=== PATIENT | female | born 1950 | race Caucasian/White ===

== ENCOUNTER 2016-03-10 14:07 | Outpatient (CLI) | payer OTHER ==
[2015-11-14 12:58] VITALS: BP 140/69
== END 2016-03-10 14:10 ==
LOC: NEPHRO 14:07
PROVIDERS: ATTEND Internal Medicine Nephrology
DX: E11.22 Type 2 diabetes mellitus with diabetic chronic kidney disease (principal); N18.9 Chronic kidney disease, unspecified; N17.9 Acute kidney failure, unspecified; R60.9 Edema, unspecified
CPT/HCPCS: G0463

== ENCOUNTER 2016-03-19 09:38 | Outpatient (CLI) | payer OTHER, MEDICAID ==
[2015-11-14 12:58] VITALS: BP 140/69
== END 2016-03-19 09:40 ==
LOC: LAB 09:38
PROVIDERS: ATTEND Family Medicine
DX: E11.9 Type 2 diabetes mellitus without complications (principal)
CPT/HCPCS: 36415; 83036

== ENCOUNTER 2016-04-09 09:58 | Outpatient (CLI) | payer OTHER ==
[2015-11-14 12:58] VITALS: BP 140/69
[2016-04-09 10:17] LABS: BASOPHILS % 0.4 (0.0-1.5); EOSINOPHILS % 3.1 % (0.0-6.8); LYMPHOCYTES # 1.3 # k/uL (0.6-4.0); MEAN CORPUSCULAR HEMOGLOBIN 27.2 pg (28.0-34.0); MONOCYTES # 0.2 # k/uL (0.0-0.9); MONOCYTES % 2.5 % (0.0-11.0); NEUTROPHILS # 7.3 # k/uL (1.4-7.7)
== END 2016-04-09 10:00 ==
LOC: LAB 09:58
PROVIDERS: ATTEND Family Medicine
DX: R61 Generalized hyperhidrosis (principal)
CPT/HCPCS: 36415; 84443; 85025; 85651

== ENCOUNTER 2016-04-21 14:13 | Outpatient (CLI) | payer OTHER ==
[2015-11-14 12:58] VITALS: BP 140/69
== END 2016-04-21 14:30 ==
LOC: NEPHRO 14:13
PROVIDERS: ATTEND Internal Medicine Nephrology
DX: E11.22 Type 2 diabetes mellitus with diabetic chronic kidney disease (principal); I12.9 Hypertensive chronic kidney disease with stage 1 through stage 4 chronic kidney disease, or unspecified chronic kidney disease; N18.9 Chronic kidney disease, unspecified; I89.0 Lymphedema, not elsewhere classified
CPT/HCPCS: G0463

== ENCOUNTER 2016-06-16 14:36 | Outpatient (CLI) | payer OTHER ==
[2015-11-14 12:58] VITALS: BP 140/69
== END 2016-06-16 14:37 ==
LOC: POD 14:36
PROVIDERS: ATTEND Podiatrist
DX: E11.42 Type 2 diabetes mellitus with diabetic polyneuropathy (principal); I87.311 Chronic venous hypertension (idiopathic) with ulcer of right lower extremity
CPT/HCPCS: G0463

== ENCOUNTER 2016-07-21 14:27 | Outpatient (CLI) | payer OTHER ==
[2015-11-14 12:58] VITALS: BP 140/69
== END 2016-07-21 14:30 ==
LOC: POD 14:27
PROVIDERS: ATTEND Podiatrist
DX: B35.1 Tinea unguium (principal); M79.674 Pain in right toe(s); M79.675 Pain in left toe(s)
CPT/HCPCS: 11721; G0463

== ENCOUNTER 2016-07-31 10:15 | Outpatient (CLI) | payer OTHER ==
[2015-11-14 12:58] VITALS: BP 140/69
[2016-07-31 10:46] LABS: APPEARANCE,URINE Clear (CLEAR); COLOR,URINE Yellow (YELLOW); OCCULT BLOOD,URINE Trace-lysed (NEGATIVE); UROBILINOGEN URINE 0.2 Eu (0.2-1.0)
[2016-07-31 10:47] LABS: BASOPHILS % 0.6 (0.0-1.5); EOSINOPHILS % 2.5 % (0.0-6.8); MEAN CORPUSCULAR HEMOGLOBIN 26.4 pg (28.0-34.0); MEAN CORPUSCULAR VOLUME 84.4 fl (80.0-100.0); MONOCYTES % 4.2 % (0.0-11.0); NEUTROPHILS # 5.7 # k/uL (1.4-7.7)
[2016-07-31 11:06] LABS: eGFR (African) 34; eGFR (Non-African) 28
[2016-07-31 21:01] LABS: PROTEIN mg/dL 5 mg/dL
== END 2016-07-31 10:20 ==
LOC: LAB 10:15
PROVIDERS: ATTEND Internal Medicine Nephrology
DX: I10 Essential (primary) hypertension (principal); I89.0 Lymphedema, not elsewhere classified; N18.9 Chronic kidney disease, unspecified; E11.9 Type 2 diabetes mellitus without complications
CPT/HCPCS: 36415; 80053; 81002; 82570; 83036; 83970; 84156; 85025

== ENCOUNTER 2016-08-04 13:43 | Outpatient (CLI) | payer OTHER ==
[2015-11-14 12:58] VITALS: BP 140/69
== END 2016-08-04 13:48 | disposition home or self-care (01) ==
LOC: NEPHRO 13:43
PROVIDERS: ATTEND Internal Medicine Nephrology
DX: I89.0 Lymphedema, not elsewhere classified (principal); N18.9 Chronic kidney disease, unspecified; E11.9 Type 2 diabetes mellitus without complications
CPT/HCPCS: G0463

== ENCOUNTER 2016-08-10 09:11 | Outpatient (CLI) | payer OTHER ==
[2015-11-14 12:58] VITALS: BP 140/69
[2016-08-10 10:02] LABS: eGFR (African) 31; eGFR (Non-African) 25
== END 2016-08-10 09:12 ==
LOC: LAB 09:11
PROVIDERS: ATTEND Internal Medicine Nephrology
DX: I89.0 Lymphedema, not elsewhere classified (principal); E11.22 Type 2 diabetes mellitus with diabetic chronic kidney disease; N18.9 Chronic kidney disease, unspecified
CPT/HCPCS: 36415; 80053

== ENCOUNTER 2016-11-10 15:12 | Outpatient (CLI) | payer OTHER ==
[2015-11-14 12:58] VITALS: BP 140/69
== END 2016-11-10 15:13 ==
LOC: NEPHRO 15:12
PROVIDERS: ATTEND Internal Medicine Nephrology
DX: N18.9 Chronic kidney disease, unspecified (principal); E87.1 Hypo-osmolality and hyponatremia
CPT/HCPCS: G0463

== ENCOUNTER 2016-11-11 10:58 | Outpatient (CLI) | payer OTHER ==
[2015-11-14 12:58] VITALS: BP 140/69
[2016-11-11 11:26] LABS: BASOPHILS % 0.9 (0.0-1.5); EOSINOPHILS % 3.3 % (0.0-6.8); MEAN CORPUSCULAR HEMOGLOBIN 27.4 pg (28.0-34.0); MONOCYTES % 4.2 % (0.0-11.0); NEUTROPHILS # 7.3 # k/uL (1.4-7.7)
[2016-11-11 11:40] LABS: eGFR (African) 32; eGFR (Non-African) 27
== END 2016-11-11 11:00 ==
LOC: LAB 10:58
PROVIDERS: ATTEND Internal Medicine Nephrology
DX: N18.9 Chronic kidney disease, unspecified (principal); E87.1 Hypo-osmolality and hyponatremia
CPT/HCPCS: 36415; 80053; 85025

== ENCOUNTER 2016-11-17 13:03 | Outpatient (CLI) | payer OTHER ==
[2015-11-14 12:58] VITALS: BP 140/69
== END 2016-11-17 13:04 ==
LOC: POD 13:03
PROVIDERS: ATTEND Podiatrist
DX: B35.1 Tinea unguium (principal); M79.674 Pain in right toe(s); M79.675 Pain in left toe(s)
CPT/HCPCS: 11721; G0463

== ENCOUNTER 2017-01-14 13:48 | Emergency (ER) | payer OTHER ==
--- NOTE | 2017-01-14 13:59 | ED Physician Documentation ---
General Adult - HISTORIAN Historian: patient, other (friend) - HPI Stated Complaint: fall Chief Complaint: Syncope Onset: hours (1) Timing: other (she states she does not remember falling however she remembers the incident and waking on the ground. Friend with her says she was talking the entire time . No seizure witnessed no chest pain noted She is not sure what her blood sugar was this am but he states they ate before they left home ) Severity: severe (mid to low back pain (which is chronic) 11/24 right now ) Further Comments: yes (She states she was walking down the ramp of the [employer] bus and she just remembers being on the ground. Denies any chest pain. No dizziness. She denies any current chest pain or dizziness Denies any pain in her head or neck . She does not remember a brief time. He denies any seizure she did not grasp at her chest. She did not hit her head. Per witness she just fell on her back and woke right up . She denies any numbness or sensation issues in arms or legs. no Loss of control of bowel or bladder.) Last known Well Code/Unknown Code: Unknown - ROS CONST: denies: fever, recent illness, weakness EYES/ENT: denies: problems with vision CVS/RESP: denies: chest pain, shortness of breath GI/: denies: abdominal pain, nausea MS/SKIN/LYMPH: back pain (chronic and present low and middle back pain ). denies: neck pain NEURO/PSYCH: denies: headache, fainting, dizziness, tingling, numbness, difficulty walking, difficulty with speech - PAST HX Past History: other (DM, hyperlipidemia, CHF, anxiety and depression ) Other History: none Surgeries/Procedures: other Immunizations: referred to PCP Allergies/Adverse Reactions: Allergies Allergy/AdvReac Type Severity Reaction Status Date / Time No Known Allergies Allergy Verified 01/14/17 14:12 Home Medications: Ambulatory Orders Medication Instructions Recorded Acetaminophen [Tylenol] 650 mg PO TID PRN 01/14/17 Aspirin [Manolo] 81 mg PO DAILY 01/14/17 Atorvastatin Calcium [Atorvastatin 40 mg PO HS 01/14/17 Calcium] DULoxetine HCL [Cymbalta] 30 mg PO BID 01/14/17 Insulin Glargine,Hum.rec.anlog 20 units SQ HS 01/14/17 [Lantus Solostar] Insulin Lispro [Humalog] 20 mg SQ TID 01/14/17 Nitroglycerin [Nitroquick] 0.4 mg SL PRN PRN 01/14/17 Potassium Chloride [Klor-Con M20] 20 meq PO BID 01/14/17 - SOCIAL HX Smoking History: non-smoker Alcohol Use: none Drug Use: none - FAMILY HX Family History: No - VITAL SIGNS Vital Signs: Vital Signs Temp Pulse Resp BP Pulse Ox 140/69 11/14/15 12:49 - REVIEWED ASSESSMENTS Nursing Assessment Reviewed: Yes Vitals Reviewed: Yes Progress - EKG/XRAY/CT CT: Not able to use CT machine will transfer General Adult Physical Exam - PHYSICAL EXAM GENERAL APPEARANCE: no distress EENT: eye inspection normal, [place] NECK: normal inspection RESPIRATORY: no resp distress, chest non-tender, breath sounds normal CVS: reg rate & rhythm, heart sounds normal, equal pulses, no murmur, no gallop , no JVD ABDOMEN: soft, no organomegaly, normal bowel sounds, no distension, non-tender BACK: other (HUSLIA on back board . normal sensation ) SKIN: warm/dry, other (bilateral lower legs with red and dry crusting skin ) EXTREMITIES: non-tender, normal range of motion, no evidence of injury, edema NEURO: oriented X3, CN's nml as tested, motor nml, sensation nml, mood/affect nml, cognition normal Discharge Clincal Impression: Loss of consciousness Referrals: Lidia Augustine MD [Primary Care Provider] - 2 Days Condition: Stable Disposition: 02 XFER [facility]OSP Decision to Admit: NO Date of Decison to Admit: 01/14/17 Decision Time: 14:48
[2017-01-14 14:09] LABS: BASOPHILS % 0.7 (0.0-1.5); EOSINOPHILS % 3.3 % (0.0-6.8); MEAN CORPUSCULAR HEMOGLOBIN 26.7 pg (28.0-34.0); MEAN CORPUSCULAR VOLUME 83.8 fl (80.0-100.0); MONOCYTES % 3.6 % (0.0-11.0); NEUTROPHILS # 5.6 # k/uL (1.4-7.7)
[2017-01-14 14:19] LABS: eGFR (African) 30; eGFR (Non-African) 25
[2017-01-14] MEDS ORDERED: KETOROLAC TROMETHAMINE 30 MG/1ML VIAL ONE (15:02)
[2017-01-14] MEDS ORDERED: KETOROLAC TROMETHAMINE 30 MG/1ML VIAL IVP ONE (15:04)
--- NOTE | 2017-01-14 15:16 | Diagnostic Imaging Report ---
QUIANA SEQUEIRA [facility] [id number] [facility] [address] [place], [place]. [address] Report Submission Date: Jan 14, 2017 2:59:30 PM TELLER SUPERVISOR Patient Study Name: CARLOS SUN Date: Jan 14, 2017 2:23:16 PM TELLER SUPERVISOR Modality Type: CT\SR Gender: F Description: CT BRAIN W/O CONTRAST : 54 Institution: [facility] Physician: QUIANA SEQUEIRA Examination: CT head without contrast History: Fall Comparison exam: None available Technique: Noncontrast head CT protocol. Findings: Ventricles and sulci are consistent for patient age. Cerebrocerebellar parenchyma demonstrates periventricular low attenuation consistent with small vessel disease. No evidence for parenchymal hemorrhage. No evidence for mass or mass effect. No midline shift. No extra axial fluid collections. Partial visualization of the paranasal sinuses, mastoid air cells, orbits, skull and scalp without gross irregularity. Impression: Mild age related changes. No acute parenchymal process. No hemorrhage. Electronically signed on Jan 14, 2017 2:59:30 PM TELLER SUPERVISOR by: Scott ZENG
[2017-01-14 15:19] VITALS: BP 127/51
== END 2017-01-14 15:14 | disposition short-term general hospital (02) ==
LOC: ED 13:48
DX: S06.9X9A Unspecified intracranial injury with loss of consciousness of unspecified duration, initial encounter (principal); W19.XXXA Unspecified fall, initial encounter; Y93.9 Activity, unspecified; Y99.9 Unspecified external cause status
CPT/HCPCS: 70450; 80053; 84484; 85025; 99284; S1016

== ENCOUNTER 2017-03-02 13:00 | Outpatient (CLI) | payer OTHER ==
[2015-11-14 12:58] VITALS: BP 140/69
== END 2017-03-02 13:02 ==
LOC: POD 13:00
PROVIDERS: ATTEND Podiatrist
DX: B35.1 Tinea unguium (principal); M79.674 Pain in right toe(s); M79.675 Pain in left toe(s)
CPT/HCPCS: 11721; G0463

== ENCOUNTER 2017-03-09 15:04 | Outpatient (CLI) | payer OTHER | END 2017-03-09 15:05 | LOC: NEPHRO 15:04 | PROVIDERS: ATTEND Internal Medicine Nephrology | DX: N18.9 Chronic kidney disease, unspecified (principal); E11.9 Type 2 diabetes mellitus without complications; I89.0 Lymphedema, not elsewhere classified | CPT/HCPCS: G0463 ==

== ENCOUNTER 2017-06-11 13:21 | Outpatient (CLI) | payer OTHER | END 2017-06-11 13:22 | LOC: POD 13:21 | PROVIDERS: ATTEND Podiatrist | DX: B35.1 Tinea unguium (principal); M79.674 Pain in right toe(s); M79.675 Pain in left toe(s) | CPT/HCPCS: 11721; G0463 ==